=== PATIENT | female | born 1975 | race Caucasian/White ===

== ENCOUNTER 2021-08-02 17:15 | Emergency (ER) | payer MEDICARE, MEDICAID, SELFPAY ==
[2021-08-02 17:55] VITALS: BP 150/82; PULSE 94; RESP 16; TEMP 37.2; O2SAT 100
--- NOTE | 2021-08-02 21:22 | ED.NECK ---
HPI - Neck Pain/Injury General Chief Complaint: Neck Pain/Injury Stated Complaint: Neck pain/swelling Source: patient and RN notes reviewed Limitations: no limitations History of Present Illness HPI Narrative: The patient, who is reportedly disabled for dysphoric mood disorder, presents with left neck discomfort. Patient states she has a weeklong history of left upper shoulder/lower neck discomfort that began while lifting a child's heavy book bag. No fever, midline neck pain, numbness/weakness, loss of dexterity, prior injury-no she had similar discomfort on the opposite side a couple years ago [for which she would like a refill of muscle relaxants]. Symptoms are mild, worse with activity unrelieved with hot or cold packs; she prefers elixirs to pills due to gastric upset. Related Data Home Medications Medication Instructions Recorded Confirmed alprazolam 0.5 mg PO DAILY 08/02/21 08/02/21 mirtazapine 30 mg PO DAILY 08/02/21 08/02/21 Allergies Allergy/AdvReac Type Severity Reaction Status Date / Time nitrofurantoin Allergy Mild Rash Verified 08/02/21 17:53 Sulfa (Sulfonamide Allergy Unknown Rash Verified 08/02/21 17:53 Antibiotics) sulfamethoxazole Allergy Unknown RASH Verified 08/02/21 17:53 trimethoprim Allergy Unknown RASH Verified 08/02/21 17:53 NITROFURANTOIN MACROCRYSTAL Allergy Mild Rash Uncoded 08/02/21 17:53 Review of Systems Review of Systems: General/Constitutional: No weight loss,fever Eyes: N0: Redness,discharge Ears/Nose/Throat: No: Epistaxis,ear discharge Respiratory: Denies: Hemoptysis Gastrointestinal: No Vomiting, Bleeding-rectal Skin: No Lumps, eruption Neurologic: No Focal Weakness,Sz Hematologic: Denies: Petechiae/Purpura Psychiatric: No: Suicida ideationl All Other Systems: Reviewed and Negative PMFSH Comments At time of signature, agree with nursing past medical, surgical, social and family history. There is no relevant family history pertinent to the presenting complaint Exam Narrative: General Appearance: Well appearing, Well nourished EYE: PERRLA, Conjunctiva clear Ears: External ear normal Nose: Normal nose Mouth/Throat: Normal appearing, Normal lips Neck: Supple, no midline tenderness, SROM Respiratory: Airway patent Abdomen: Soft Musculoskeletal: Normal strength, no footdrop, 5/5 : Bi/Tri) Spine/Back: Cervical paraspinal muscle tender with mild decreased range of motion) Skin: Normal color Neurological: A&O x3, CN II-XII intact, Normal reflexes (symmetric, trace BI/TRI) Psychiatric: Normal mood Course Vital Signs Vital signs: Vital Signs Temperature 98.9 F 08/02/21 17:55 Pulse Rate 94 08/02/21 17:55 Respiratory Rate 16 08/02/21 17:55 Blood Pressure 150/82 H 08/02/21 17:55 Pulse Oximetry 100 08/02/21 17:55 Temperature 98.9 F 08/02/21 17:55 Pulse Rate 94 08/02/21 17:55 Respiratory Rate 16 08/02/21 17:55 Blood Pressure 150/82 H 08/02/21 17:55 Pulse Oximetry 100 08/02/21 17:55 Discharge Plan Discharge Clinical Impression: Strain of neck muscle Patient Disposition: Home, Self-Care Condition: Stable Instructions: Cervical Strain (ED) Prescriptions: New cyclobenzaprine 10 mg tablet 10 mg PO TID PRN (Reason: muscle spasm) Qty: 20 RF: 1 prednisolone sodium phosphate 15 mg/5 mL (3 mg/mL) solution 30 mg PO BID Qty: 100 RF: 0 acetaminophen-codeine 120-12 mg/5 mL solution 5 - 7.5 ml PO Q8H PRN (Reason: pain) Qty: 118 RF: 0 No Action alprazolam 0.5 mg tablet 0.5 mg PO DAILY RF: 0 mirtazapine 30 mg tablet 30 mg PO DAILY RF: 0 Follow-up/Referrals: Tino,Rick Hale MD [Primary Care Provider] -
== END 2021-08-02 20:10 | disposition home or self-care (01) ==
PROVIDERS: Emergency Provider Emergency Medicine; PCP Internal Medicine
DX: S16.1XXA Strain of muscle, fascia and tendon at neck level, initial encounter (principal); X50.0XXA Overexertion from strenuous movement or load, initial encounter; F34.1 Dysthymic disorder; L65.9 Nonscarring hair loss, unspecified
CPT/HCPCS: 99203; G0463